=== PATIENT | male | born 1970 | race Asian ===

== ENCOUNTER 2024-08-14 08:37 | Emergency (ER) | payer BC ==
[~2024-08-14] VITALS: Ht 170.2 cm; Wt 78.5 kg
[2024-08-14] MEDS ORDERED: KETOROLAC TROMETHAMINE 15 MG/ML VIAL ONE (08:50)
[2024-08-14] MEDS: KETOROLAC TROMETHAMINE 15 MG/ML VIAL IM ONE (08:57)
[2024-08-14] MEDS ORDERED: IBUP-1955 PO (09:24)
[2024-08-14 09:50] VITALS: BP 128/77; TEMP 98.2; O2SAT 98
== END 2024-08-14 09:50 | disposition home or self-care (01) ==
LOC: ER 08:37
DX: M25.471 Effusion, right ankle (principal); E78.5 Hyperlipidemia, unspecified; I10 Essential (primary) hypertension
CPT/HCPCS: 99283; 96372; 73610; J1885